=== PATIENT | male | born 1940 | race Caucasian/White ===

== ENCOUNTER 2023-01-31 07:42 | Day surgery (SDC) | payer MEDICARE, OTHER ==
[2023-01-25 09:17] VITALS: BP 161/88
[~2023-01-31] VITALS: Ht 180.3 cm; Wt 75.0 kg
[~2023-01-31 07:42] MED LIST: ASPIRIN EC81 MG PO; CLARITIN10 M3 PO; DOXAZOSIN MESYLA1 MG PO; DOXAZOSIN MESYLA4 MG PO; FELODIPINE ER10 MG PO; GLUCOSAMINE CH1 EAC4 PO; HYDROCODON-ACE1 EA10 PO; HYDROMORPHONE HC4 MG PO; LEVOTHYROXINE150 MCG PO; LEVOTHYROXINE200 MCG PO; LIPITOR40 MG PO; LISINOPRIL40 MG PO; METOPROLOL SUC100 MG PO; METOPROLOL SUCC50 MG PO; MULTIVITAMINS1 EAC7 PO; NORCO 5-325 TA1 EACH PO; PLAVIX75 MG PO; PRILOSEC20 MG PO; VITAMIN D2000 UNI1 PO; VITAMIN D5000 UNIT PO; XARELTO10 MG PO
[2023-01-31 07:57] VITALS: BP 127/63
--- NOTE | 2023-01-31 10:04 | NUR ---
01/31/23 1004 Karen Núñez TO PACU, ORAL AIRWAY IN PLACE.
[2023-01-31 10:47] VITALS: BP 122/83
--- NOTE | 2023-01-31 12:03 | OR ---
[facility] [address] [place], [place] [address] Signed DATE OF OPERATION: 01/31/2023 SURGEON: Rojelio Bartholomew MD PREOPERATIVE DIAGNOSES: 1. Personal history of colonic polyps in his late 50s or 60s with Dr. Corley. 2. Diverticulosis. 3. Positive Cologuard test. 4. Paternal grandfather with colon cancer in his late 50s. 5. Father and paternal uncles x2 with colon polyps in their late 50s. POSTOPERATIVE DIAGNOSES: 1. Minimal sigmoid diverticulosis. 2. Minimal internal hemorrhoids. 3. 10 mm sessile polyp in proximal transverse colon (snare, clipped x2, tattoo). 4. 4 mm polyp at base of cecum. 5. 6 mm polyp at 40 cm in left colon. 6. 7 mm polyp at 45 cm in left colon. 7. 8 mm polyp at 25 cm in sigmoid colon (snare, clip x1). 8. 4 mm polyp at 20 cm in sigmoid colon (loss to retrieval). PROCEDURE: Colonoscopy with snare polypectomy, hot biopsies, application of clips x3 and tattoo x1. ESTIMATED BLOOD LOSS: None. INDICATIONS: Ricardo is an 82-year-old gentleman, asked to see me for a colonoscopy. He told me that Dr. Corley removed the polyp from his colon back in his late 50s maybe early 60s. Dr. Gregorio took a diminutive cecal polyp out in 2009 at the age of 69. He is also known to have a little diverticulosis. He was having some diarrhea at age 71, so Dr. Gregorio repeated the colonoscopy. There were no findings. We know his paternal grandfather had colon cancer in his late 50s. His father and paternal uncles x2, all had colonic polyps in their late 50s. More recently, Ricardo had a positive Cologuard test. He said he really has no lower GI complaints currently. He is also on Plavix because of his stroke. He had been asked to see me with respect to the above. In the office, I gave him our brochure on colonoscopy. We reviewed the nature of the test. There is risk including, but not limited to gas bloating, crampy abdominal pain, bleeding, perforation requiring surgery, and missed diagnosis. We had reviewed the written instructions for a Electronically Signed By: ROJELIO BARTHOLOMEW MD 01/31/23 1203 PATIENT NAME: RICARDO COHEN OPERATIVE REPORT DATE OF : 42 REPORT #: [id number] PHYSICIAN: ROJELIO BARTHOLOMEW MD PCP: SERGIO FALLON DO REPORT IS CONFIDENTIAL AND NOT TO BE RELEASED WITHOUT AUTHORIZATION [facility] [address] [place], [place] [address] Signed bowel prep line by line. We circled the section to hold Plavix 5 days prior to the procedure. He told me his lamp inspector, Dr. Aparicio, was in agreement. He is welcome to take his other medications. Also because of his advanced age, his frail nature and his previous stroke, he cannot tolerate wide swings in his blood pressure. We asked for monitored anesthesia care with propofol infusion. That worked out well today for Ricardo. He had expressed understanding and wished to proceed. PROCEDURE NOTE: Ricardo was taken into our endoscopy suite and placed in the left lateral decubitus position. He was given monitored anesthesia care with propofol infusion per our nurse director of enrollment. 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 No specific nodules. He has good sphincter tone. Nothing in the way of any specific external hemorrhoids. The adult colonoscope was introduced and advanced all around into the cecum under direct visualization of the camera. It took some abdominal compression and careful advancing the scope until we got in the cecum itself. His prep was quite excellent. We could easily see the appendiceal orifice and the ileocecal valve. The scope was then slowly withdrawn. We took out the polyps mentioned above mostly with the hot biopsy forceps. We did use our snare in the proximal transverse colon as well as the sigmoid colon at 25 cm. We put two clips on the polypectomy site in the proximal transverse colon and left a tattoo. We also put one clip at the polypectomy site at 25 cm. Also, we noted he does have some diverticulosis. They are small in size, few in number and scattered about in the sigmoid colon. The scope had been retroflexed in the rectum and he does have minimal internal hemorrhoid columns. The gas was then suctioned out and the colonoscope removed. Ricardo tolerated the procedure quite well. RECOMMENDATIONS: I will see Ricardo back in my office in 7 to 14 days to review his results. He will resume the Plavix in one week. Given his advanced age, he will always need monitored anesthesia care in the future. Rojelio Bartholomew MD ALB/SINGHL /[id number] cc: Alexis Aparicio MD Electronically Signed By: ROJELIO BARTHOLOMEW MD 01/31/23 1203 PATIENT NAME: RICARDO COHEN OPERATIVE REPORT DATE OF : 42 REPORT #: [id number] PHYSICIAN: ROJELIO BARTHOLOMEW MD PCP: SERGIO FALLON DO REPORT IS CONFIDENTIAL AND NOT TO BE RELEASED WITHOUT AUTHORIZATION [facility] [address] [place], [place] [address] Signed MD Sergio Bazan DO Copies: ALEXIS APARICIO MD, ANDREW L MD KARGAR, ARIAN DO ~ Electronically Signed By: ROJELIO BARTHOLOMEW MD 01/31/23 1203 PATIENT NAME: RICARDO COHEN OPERATIVE REPORT DATE OF : 42 REPORT #: [id number] PHYSICIAN: ROJELIO BARTHOLOMEW MD PCP: SERGIO FALLON DO REPORT IS CONFIDENTIAL AND NOT TO BE RELEASED WITHOUT AUTHORIZATION
--- NOTE | 2023-02-01 17:09 | PATH ---
[facility] [address] [place], [place] [address] Signed SPECIMEN(S): A PROXIMAL COLON POLYP AT 130 CM SPECIMEN(S): B CECUM COLON POLYP SPECIMEN(S): C DESCENDING/LEFT COLON POLYP AT 40 CM SPECIMEN(S): D DESCENDING/LEFT COLON POLYP AT 45 CM SPECIMEN(S): E SIGMOID POLYP AT 25 CM SPECIMEN SOURCE: A. PROXIMAL COLON POLYP AT 130 CM B. CECUM COLON POLYP C. DESCENDING/LEFT COLON POLYP AT 40 CM D. DESCENDING/LEFT COLON POLYP AT 45 CM E. SIGMOID POLYP AT 25 CM CLINICAL HISTORY: Positive Cologuard test; Family hx colon Ca; Personal hx polyps; Diverticulosis. Post: [place] polyps, diverticulosis. FINAL PATHOLOGIC DIAGNOSIS: A. Proximal colon polyp at 130 cm: - Serrated polyp / adenoma (multiple fragments). B. Cecum colon polyp: - Serrated polyp / adenoma (one fragment). C. Descending / left colon polyp at 40 cm: - Hyperplastic polyp (one fragment). D. Descending / left colon polyp at 45 cm: - Hyperplastic polyp (one fragment). E. Sigmoid polyp at 25 cm: - Hyperplastic polyp (one fragment). JVR:[id number] MICROSCOPIC EXAMINATION: Histologic sections of all submitted blocks are examined by light microscopy. These findings, together with the gross examination, support the pathologic diagnosis. GROSS DESCRIPTION: A. The specimen, labeled and designated "Green, proximal colon polyp at 130 cm," is received in formalin and consists of four ramirez soft tissue fragments, ranging from 0.1-2.0 cm. The biggest tissue fragment is inked and sectioned. The entire specimen is submitted in (A1). B. The specimen, labeled and designated "Green, cecum polyp," is received in PATIENT NAME: RICARDO COHEN PATHOLOGY DATE OF : 42 REPORT #: [id number] PHYSICIAN: ALONZO FU PCP: AMANDA FALLON DO REPORT IS CONFIDENTIAL AND NOT TO BE RELEASED WITHOUT AUTHORIZATION [facility] [address] [facility] [place] [address] Signed formalin and consists of one ramirez soft tissue fragment, 0.1 cm. Entirely submitted in (B1). C. The specimen, labeled and designated "Green, descending colon polyp at 40 cm," is received in formalin and consists of one ramirez soft tissue fragment, 0.1 cm. Entirely submitted in (C1). D. The specimen, labeled and designated "Green, descending colon polyp at 45 cm," is received in formalin and consists of one ramirez soft tissue fragment, 0.1 cm. Entirely submitted in (D1). E. The specimen, labeled and designated "Green, sigmoid colon polyp at 25 cm," is received in formalin and consists of one ramirez soft tissue fragment, 0.1 cm. Entirely submitted in (E1). JS (under the direct supervision of a pathologist) The Gross Description was prepared using a voice recognition system. The report was reviewed for accuracy; however, sound-alike word errors, addition and/or deletions may occur. If there is any question about this report, please contact Client Services. PERFORMING LABORATORY: Technical component was performed by [facility], [address] [place] [id number] (CLIA# [id number]). Professional interpretation was performed by [facility] [employer] [facility] [facility], [address] [place] [address], [place] [address] (CLIA#: [id number]). Diagnostician: Edmundo Mg MD Pathologist Electronically Signed 02/01/2023 Copies: ~ PATIENT NAME: RICARDO COHEN PATHOLOGY DATE OF : 42 REPORT #: [id number] PHYSICIAN: ALONZO FU PCP: AMANDA FALLON DO REPORT IS CONFIDENTIAL AND NOT TO BE RELEASED WITHOUT AUTHORIZATION
== END 2023-01-31 10:35 | disposition home or self-care (01) ==
LOC: OPS 07:42 → DS 07:42 → OPS 09:00 → DS 09:00 → OPS 10:35
PROVIDERS: ATTEND Colon & Rectal Surgery
PROC: 0DBE8ZX Excision of Large Intestine, Via Natural or Artificial Opening Endoscopic, Diagnostic (ICD-10-PCS; 2023-01-31)
PROC: 0DBL8ZX Excision of Transverse Colon, Via Natural or Artificial Opening Endoscopic, Diagnostic (ICD-10-PCS; 2023-01-31)
PROC: 3E0H8KZ Introduction of Other Diagnostic Substance into Lower GI, Via Natural or Artificial Opening Endoscopic (ICD-10-PCS; 2023-01-31)
PROC: 0DBH8ZX Excision of Cecum, Via Natural or Artificial Opening Endoscopic, Diagnostic (ICD-10-PCS; principal; 2023-01-31 09:00)
DX: Z12.11 Encounter for screening for malignant neoplasm of colon (principal); K57.30 Diverticulosis of large intestine without perforation or abscess without bleeding; K64.8 Other hemorrhoids; D12.0 Benign neoplasm of cecum; D12.6 Benign neoplasm of colon, unspecified; K63.5 Polyp of colon; Z86.010 Personal history of colon polyps; Z80.0 Family history of malignant neoplasm of digestive organs; I10 Essential (primary) hypertension; E03.9 Hypothyroidism, unspecified; K21.9 Gastro-esophageal reflux disease without esophagitis; I25.2 Old myocardial infarction; G47.30 Sleep apnea, unspecified; E78.00 Pure hypercholesterolemia, unspecified; Z95.5 Presence of coronary angioplasty implant and graft; Z88.8 Allergy status to other drugs, medicaments and biological substances; Z79.890 Hormone replacement therapy; Z79.899 Other long term (current) drug therapy
CPT/HCPCS: J0690; J2704; J7121